=== PATIENT | female | born 1965 | race Hispanic/Latino ===

== ENCOUNTER 2023-01-16 10:34 | Emergency (ER) | payer BC ==
--- OUTSIDE RECORDS SUMMARY | 2023-01-16 10:38 | XMS REPORT | Continuity of Care Document ---
:1965 Author Organization [facility] t Address [address] [place] [address] [place] [id number] Care Team Providers Name Role Phone Laurel Valdez DO Primary Care Physician KRISTAL MARIO Attending Clinician Unavailable Payers Payer Name Policy Type Policy Number Effective Date Expiration Date S ource Blue Cross and C1 [id number] Common S [facility] Blue Cross and C1 [id number] Common S [facility] Problems Condition Condition Condition Status Onset Resolution Last Treating Co mments Source Name Details Category Date Date Treatment Clinician Date Dry eye Dry eye Disease Active Overview: Meth lucy 8-[address] 00:00: g of this [facility]osp[facility] 00 note l might be different from the original. filaments plugs replaced: 0.5 mm tear saver RLL, LLLrestas isnonpres erved artificia l teardefer steroid drops [id number] Acute left Problem Active C ommon 9105 ankle pain [facility] [id number] Sprain of Problem Active Comm on left Spirit ankle, - [facility] un[facility]if[facility] ligament, Medical initial Center encounter [id number] Primary Problem Active Comm on osteoarthr Spirit itis of - [facility] right hip [facility] Piriformis Piriformis Problem Active C ommon syndrome syndrome [facility] Allergies, Adverse Reactions, Alerts This patient has no known allergies or adverse reactions. Social History Social Habit Start Date Stop Date Quantity Comments Source History of Tobacco [facility] - Use [facility] Gender identity [facility] Sexual orientation Method [facility] Sex Assigned At [birth year] Met [facility] 00:00:00 00:00:00 Smoking Status Start Date Stop Date Source Tobacco smoking [facility] consumption unknown Former Smoker 2020-12-16 00:00:00 2020-12-16 [facility] Medications Ordered Filled Start Stop Current Ordering Indication Dosage Frequency Signature Comments Components Source Medication Medication Date Date Medication? Clinician (SIG) Name Name riri 2020-07 Yes 1[drp] Q.5D Administer Methodi (Xiidra) 5 0-[address] % 00:00: both eyes Hospita dropperette 00 2 (two) l times a day. rimegepant Yes 75mg Take 75 mg M ethodi (Nurtec 8-[address] ODT) 75 mg 14:25: Hospita tablet,disi 53 l ntegrating omeprazole Yes 40mg QD Take 40 mg M ethodi (PriLOSEC) 6-[address] 40 MG 00:00: daily. Hospita capsule 00 l Mobic Mobic 2020-0 2020- No Jose 1 tablet Com 03-17 Painting Spirit 00:00: 00:00 - [facility] 00 :00 [facility] PredniSONE PredniSONE Yes Jose not Common Painting defined [facility] Ciclopirox Ciclopirox Yes Jose not Common Painting defined [facility] Diphenoxyla Diphenoxyla Yes Jose not Common te-Atropine te-Atropine Painting defined [facility] Butalbital- Butalbital- Yes Jose not Common APAP-Caffei APAP-Caffei Paintnig defined [facility] ne [facility] Omeprazole Omeprazole Yes Jose not Common Painting defined [facility] Hyoscyamine Hyoscyamine Yes Jose not Common Sulfate Sulfate Painting defined [facility] Amoxicillin Amoxicillin Yes Jose not Common -Pot -Pot Painting defined [facility] Clavulanate Clavulanate [facility] Propranolol Propranolol No Propranolo HCl 10 MG HCl 10 MG l HCl 10 MG Topiramate Topiramate No Topiramate 50 MG 50 MG 50 MG Amoxicillin Amoxicillin No Amoxicilli -Pot -Pot n-Pot Clavulanate Clavulanate Clavulanat e Butalbital- Butalbital- No Butalbital APAP-Caffei APAP-Caffei -APAP-Caff ne ne eine Ciclopirox Ciclopirox No Ciclopirox Hyoscyamine Hyoscyamine No Hyoscyamin Sulfate Sulfate e Sulfate Diphenoxyla Diphenoxyla No Diphenoxyl te-Atropine te-Atropine ate-Atropi ne Omeprazole Omeprazole No Omeprazole Triazolam Triazolam No Triazolam 0.25 MG 0.25 MG 0.25 MG Ibuprofen Ibuprofen No Ibuprofen 600 MG 600 MG 600 MG Penicillin Penicillin No Penicillin V Potassium V Potassium V 500 MG 500 MG Potassium 500 MG PredniSONE PredniSONE No PredniSONE Meloxicam Meloxicam No Meloxicam 7.5 MG 7.5 MG 7.5 MG PredniSONE PredniSONE No PredniSONE Common [facility] Omeprazole Omeprazole No Omeprazole Common [facility] Butalbital- Butalbital- No Butalbital Common APAP-Caffei APAP-Caffei -APAP-Caff Spirit ne ne [facility] Topiramate Topiramate No Topiramate Common 50 MG 50 MG 50 MG [facility] Triazolam Triazolam No Triazolam Common 0.25 MG 0.25 MG 0.25 MG [facility] Amoxicillin Amoxicillin No Amoxicilli Common -Pot -Pot n-Pot Spirit Clavulanate Clavulanate Clavulanat - [facility] Ciclopirox Ciclopirox No Ciclopirox Common [facility] Meloxicam Meloxicam No Meloxicam Common 7.5 MG 7.5 MG 7.5 MG [facility] Hyoscyamine Hyoscyamine No Hyoscyamin Common Sulfate Sulfate e Sulfate Spir it - [facility] Propranolol Propranolol No Propranolo Common HCl 10 MG HCl 10 MG l HCl 10 S pirit MG [facility] Diphenoxyla Diphenoxyla No Diphenoxyl Common te-Atropine te-Atropine ate-Atropi [facility] ne [facility] Penicillin Penicillin No Penicillin Common V Potassium V Potassium V S pirit 500 MG 500 MG Potassium - [facility] 500 MG [facility] Ibuprofen Ibuprofen No Ibuprofen Common 600 MG 600 MG 600 MG [facility] Vital Signs Vital Name Observation Time Observation Value Comments Source height 2020-12-16 15:30:00 64 [in_i] [facility] weight 2020-12-16 15:30:00 14 [lb_av] Common S pirit [facility] bmi 2020-12-16 15:30:00 2.40 kg/m2 [facility] S pirit [facility] blood pressure 2020-12-16 15:30:00 155 mm[Hg] [facility] - systolic [facility] blood pressure 2020-12-16 15:30:00 91 mm[Hg] [facility] - diastolic [facility] height 2020-11-23 13:45:00 64 [in_i] Common S pirit [facility] weight 2020-11-23 13:45:00 184 [lb_av] Common S pirit [facility] bmi 2020-11-23 13:45:00 31.58 kg/m2 Common S pirit [facility] blood pressure 2020-11-23 13:45:00 126 mm[Hg] [facility] - systolic [facility] blood pressure 2020-11-23 13:45:00 84 mm[Hg] [facility] - diastolic [facility] Procedures This patient has no known procedures. Plan of Care Planned Activity Planned Date Details Comments Source Future Scheduled 2023-01-13 Screening for [facility] Test 11:32:10 malignant neoplasm of colon (procedure) [code = 938317522] Future Scheduled 2023-01-13 Screening for [facility] Test 11:32:10 malignant neoplasm of colon (procedure) [code = 038374156] Future Scheduled 2023-01-13 Screening for [facility] Test 11:32:10 malignant neoplasm of colon (procedure) [code = 724242561] Future Scheduled 2023-01-13 [facility] Test 11:32:10 screening (procedure) [code = 160605136] Future Scheduled 2023-01-13 Screening for [facility] Test 11:32:10 malignant neoplasm of cervix (procedure) [code = 567851276] Future Scheduled 2023-01-13 BREAST CANCER [facility] Test 11:32:10 SCREENING [code = BREAST CANCER SCREENING] Future Scheduled 2023-01-13 Screening for [facility] Test 11:32:10 malignant neoplasm of colon (procedure) [code = 688853189] Future Scheduled 2023-01-13 Screening for [facility] Test 11:32:10 malignant neoplasm of colon (procedure) [code = 700218594] Future Scheduled 2023-01-13 SHINGLES VACCINES [facility] Test 11:32:10 (1 of 2) [code = SHINGLES VACCINES (1 of 2)] Future Scheduled 2023-01-13 COVID-19 VACCINE (3 [facility] Test 11:32:10 - Moderna series) [code = COVID-19 VACCINE (3 - Moderna series)] Future Scheduled 2023-01-13 INFLUENZA VACCINE Method [facility] Hospital Test 11:32:10 [code = INFLUENZA VACCINE] Encounters Start End Encounter Admission Attending Care Care Encounter Source Date/Time Date/Time Type Type Clinicians Facility Department ID 2021-08-24 Outpatient [facility] Common 12:55:10 [id number] [facility] 2021-08-24 Outpatient [facility] Common 11:40:14 [id number] [facility] 2021-08-24 Outpatient [facility] [id number] Common 11:38:53 [id number] [facility] 2021-05-20 2021-05-20 Outpatient KRISTAL MARIO [facility] [id number] [place] 00:00:00 00:00:[address] 2021-03-24 2021-03-24 Outpatient KRISTAL MARIO [facility] [id number] [place] 00:00:00 00:00:[address] 2020-12-16 2020-12-16 OFF[facility] [id number] Co mmon 00:00:00 00:00:00 VISIT EST Spir it PT LEVEL 3 - [facility] 2020-11-23 2020-11-23 [facility] [id number] Co mmon 00:00:00 00:00:00 VISIT EST Spir it PT LEVEL 3 - [facility] 2020-04-13 2020-04-13 Outpatient Kaden Stockton [id number] Common 15:47:00 15:47:00 [facility] 2020-03-17 2020-03-17 Outpatient Kaden Stockton [id number] Common 08:30:00 08:30:00 t [facility] - [facility] Results This patient has no known results.
[2023-01-16] MEDS ORDERED: KETOROLAC 30 MG/ML INJ ONE (11:19)
[2023-01-16 11:33] LABS: Absolute Lymphocytes (CBC) 1.8 K/uL (0.7-4.9); Hematocrit 41.6 % (36.0-45.0); Lymphocytes % 32.2 % (15.3-44.8); MCV 88.6 fL (80-100)
[2023-01-16 11:51] LABS: Magnesium 2.1 mg/dL (1.6-2.4); Troponin High Sensitivity 4.1 pg/mL (<58.9)
--- NOTE | 2023-01-16 11:56 | RAD REPORT ---
EXAM DESCRIPTION: Rafat Single View01/16/2023 11:38 am CLINICAL HISTORY: neck and right anterior chest pain COMPARISON: No comparisons TECHNIQUE: Portable AP view of the chest. FINDINGS: The lungs are clear. No pneumothorax or effusion. The cardiomediastinal contours are unre markable. IMPRESSION: No acute cardiopulmonary process.
[2023-01-16] MEDS ORDERED: MECLIZINE HCL 12.5 MG TAB ONE (12:31)
--- NOTE | 2023-01-16 13:26 | RAD REPORT ---
EXAM DESCRIPTION: CT - Head Brain Wo Cont - 01/16/2023 1:13 pm CLINICAL HISTORY: Dizziness COMPARISON: none TECHNIQUE: Computed axial tomography of the head was obtained. IV contrast was not requested. All CT scans are performed using dose optimization technique as appropriate and may include automated exposure control or mA/KV adjustment according to patient size. FINDINGS: An intracranial bleed is not seen The ventricles are normal in caliber No significant hypodense areas within the brain visualized No extra-axial fluid collection is noted. Fluid within the sinuses/ mastoids is not seen IMPRESSION: No acute intracranial abnormality is seen If patient's symptoms persist MRI of the brain would be recommended
--- NOTE | 2023-01-16 14:17 | EDPHYS ---
Physician Documentation [facility] Name: Lucy Wang Age: 57 yrs Sex: Female : 1965 Arrival Date: 01/16/2023 Time: 10:34 Bed 14 Private MD: ED Physician Nico Oliveira HPI: 01/16 17:34 This 57 yrs old Female presents to ER via Ambulatory with complaints of kdr Dizziness, Vomiting. 17:34 Patient states that she has been vomiting since 7 AM. She woke at about 4:30 AM and had kdr pain on the right side of her neck which radiated into her right arm. She stated felt tingling in her right arm. Otherwise she is asymptomatic and not toxic. She has not had this before. Onset: The symptoms/episode began/occurred this morning. Severity of symptoms: At their worst the symptoms were moderate severe just prior to arrival, in the emergency department the symptoms have improved markedly. The patient has not experienced similar symptoms in the past. The patient has not recently seen a physician. Historical: - Allergies: 10:48 No Known Allergies; iw - Home Meds: 10:48 Butalbital Compound Oral as needed [Active]; iw - PMHx: 10:48 Migraine; reflux; iw - PSHx: 10:48 tubal ligation; iw - Social history:: Smoking status: . ROS: 17:34 Constitutional: Negative for fever, chills, and weight loss, Eyes: Negative for injury, kdr pain, redness, and discharge, Neck: Negative for injury, pain, and swelling, Cardiovascular: Negative for chest pain, palpitations, and edema, Respiratory: Negative for shortness of breath, cough, wheezing, and pleuritic chest pain, Abdomen/GI: Negative for abdominal pain, nausea, vomiting, diarrhea, and constipation, Back: Negative for injury and pain, : Negative for injury, bleeding, discharge, and swelling, MS/Extremity: Negative for injury and deformity, Skin: Negative for injury, rash, and discoloration, Psych: Negative for depression, anxiety, suicide ideation, homicidal ideation, and hallucinations, Allergy/Immunology: Negative for hives, rash, and allergies, Endocrine: Negative for neck swelling, polydipsia, polyuria, polyphagia, and marked weight changes, Hematologic/Lymphatic: Negative for swollen nodes, abnormal bleeding, and unusual bruising. 17:34 Neuro: Positive for dizziness, headache, weakness, All symptoms are very mild. Patient was unable to fully localize or describe her symptoms as she was generally vague. She did not any time appear toxic or acutely ill. Exam: 17:34 Constitutional: This is a well developed, well nourished patient who is awake, alert, kdr and in no acute distress. Head/Face: Normocephalic, atraumatic. Eyes: Pupils equal round and reactive to light, extra-ocular motions intact. Lids and lashes normal. Conjunctiva and sclera are non-icteric and not injected. Cornea within normal limits. Periorbital areas with no swelling, redness, or edema. Neck: Trachea midline, no thyromegaly or masses palpated, and no cervical lymphadenopathy. Supple, full range of motion without nuchal rigidity, or vertebral point tenderness. No Meningismus. Chest/axilla: Normal chest wall appearance and motion. Nontender with no deformity. No lesions are appreciated. Cardiovascular: Regular rate and rhythm with a normal S1 and S2. No gallops, murmurs, or rubs. Normal PMI, no JVD. No pulse deficits. Respiratory: Lungs have equal breath sounds bilaterally, clear to auscultation and percussion. No rales, rhonchi or wheezes noted. No increased work of breathing, no retractions or nasal flaring. Abdomen/GI: Soft, non-tender, with normal bowel sounds. No distension or tympany. No guarding or rebound. No evidence of tenderness throughout. Back: No spinal tenderness. No costovertebral tenderness. Full range of motion. Skin: Warm, dry with normal turgor. Normal color with no rashes, no lesions, and no evidence of cellulitis. MS/ Extremity: Pulses equal, no cyanosis. Neurovascular intact. Full, normal range of motion. Neuro: Awake and alert, GCS 15, oriented to person, place, time, and situation. Cranial nerves II-XII grossly intact. Motor strength 5/5 in all extremities. Sensory grossly intact. Cerebellar exam normal. Normal gait. Psych: Awake, alert, with orientation to person, place and time. Behavior, mood, and affect are within normal limits. Vital Signs: 10:46 BP 189 / 92; Pulse 77; Resp 18; Pulse Ox 100% on R/A; Weight 86.18 kg; Height 5 ft. 4 iw in. ; Pain 5/10; 11:19 BP 179 / 88; Pulse 75; Resp 19 S; Pulse Ox 99% on R/A; kc6 11:23 BP 164 / 110 RA Supine (auto/lg); Pulse 84; kc6 11:26 BP 163 / 94 RA Sitting (auto/lg); Pulse 79; kc6 11:29 BP 162 / 99 RA Standing (auto/lg); Pulse 89; kc6 12:28 BP 135 / 70; Pulse 69; Resp 19 S; Pulse Ox 95% on R/A; kc6 13:30 BP 156 / 88; Pulse 72; Resp 17 S; Pulse Ox 99% on R/A; kc6 10:46 Body Mass Index 32.61 (86.18 kg, 162.56 cm) iw 10:46 Pain Scale: Adult iw MDM: 14:17 Patient medically screened. kdr 17:34 Data reviewed: vital signs, nurses notes, lab test result(s), radiologic studies. ED kdr course: Patient was completely stable and not acutely ill-appearing during her stay in the ED.. 01/16 11:07 Order name: Basic Metabolic Panel; Complete Time: 12:36 kdr 01/16 11:07 Order name: CBC with Diff; Complete Time: 12:36 kdr 01/16 11:07 Order name: Magnesium; Complete Time: 12:36 kdr 01/16 11:07 Order name: Troponin HS; Complete Time: 12:36 kdr 01/16 11:07 Order name: XRAY Chest (1 view); Complete Time: 12:36 kdr 01/16 12:36 Order name: CT Head Brain wo Cont; Complete Time: 14:06 kdr 01/16 11:07 Order name: EKG; Complete Time: 11: kdr 01/16 11:07 Order name: Cardiac monitoring; Complete Time: 11: kdr 01/16 11:07 Order name: EKG - Nurse/Tech; Complete Time: 11: kdr 01/16 11:07 Order name: IV Saline Lock; Complete Time: : kdr 01/16 11:07 Order name: Labs collected and sent; Complete Time: : kdr 01/16 11:07 Order name: O2 Per Protocol; Complete Time: 11: kdr 01/16 11:07 Order name: O2 Sat Monitoring; Complete Time: 11:08 kdr 01/16 11:08 Order name: Orthostatic Blood Pressure; Complete Time: 11:29 kdr Administered Medications: 11:29 Drug: Ketorolac IVP 15 mg Route: IVP; Site: left antecubital; kc6 12:30 Follow up: Response: No adverse reaction; Pain is decreased kc6 12:26 Drug: Meclizine PO 25 mg Route: PO; kc6 15:00 Follow up: Response: No adverse reaction kc6 15:00 Drug: Acetaminophen PO 1000 mg Route: PO; kc6 Disposition Summary: 01/16/23 14:17 Discharge Ordered Location: Home kdr Problem: new kdr Symptoms: have improved kdr Condition: Stable kdr Diagnosis - Dizziness and giddiness kdr - Headache kdr - Nausea with vomiting, unspecified kdr Followup: kdr - With: Private Physician - When: 2 - 3 days - Reason: If symptoms return, Further diagnostic work-up, Recheck today's complaints, Continuance of care, Re-evaluation by your physician Discharge Instructions: - Discharge Summary Sheet kdr - General Headache Without Cause kdr - Vertigo, [id number] kdr - Hyperglycemia, [id number] kdr - Dizziness, [id number] kdr Forms: - Medication Reconciliation Form kdr - Thank You Letter kdr Prescriptions: - Meclizine 25 mg Oral Tablet - take 1 tablet by ORAL route every 8 hours As needed; 15 tablet; Refills: 0, kdr Product Selection Permitted Signatures: Dispatcher [employer] Nico Palm MD MD kdr Estefany Munoz RN RN iw Campbell, Kaitlyn, RN RN kc6
--- NOTE | 2023-01-16 14:17 | ER ---
Nurse's Notes [facility] Name: Lucy Wang Age: 57 yrs Sex: Female : 1965 Arrival Date: 01/16/2023 Time: 10:34 Bed 14 Private MD: Diagnosis: Dizziness and giddiness;Headache;Nausea with vomiting, unspecified Presentation: 01/16 10:46 Chief complaint: Patient states: has aleah vomiting and dizzy since this morning at 0700 iw , when she woke up at 0430 she had a bad pain in right side of neck , pain radiates to right arm and it feels tingly. Coronavirus screen: At this time, the client does not indicate any symptoms associated with coronavirus-19. Ebola Screen: Patient negative for fever greater than or equal to 101.5 degrees Fahrenheit, and additional compatible Ebola Virus Disease symptoms Patient denies exposure to infectious person. Patient denies travel to an Ebola-affected area in the 21 days before illness onset. No symptoms or risks identified at this time. Initial Sepsis Screen: Does the patient meet any 2 criteria? No. Patient's initial sepsis screen is negative. Does the patient have a suspected source of infection? No. Patient's initial sepsis screen is negative. Risk Assessment: Do you want to hurt yourself or someone else? Patient reports no desire to harm self or others. Onset of symptoms was January 16, 2023. 10:46 Method Of Arrival: Ambulatory iw 10:46 Acuity: EDIN 2 iw Historical: - Allergies: 10:48 No Known Allergies; iw - Home Meds: 10:48 Butalbital Compound Oral as needed [Active]; iw - PMHx: 10:48 Migraine; reflux; iw - PSHx: 10:48 tubal ligation; iw - Social history:: Smoking status: . Screenin:01 [facility] ED Fall Risk Assessment (Adult) History of falling in the last 3 months, kc6 including since admission No falls in past 3 months (0 pts) Confusion or Disorientation No (0 pts) Intoxicated or Sedated No (0 pts) Impaired Gait No (0 pts) Mobility Assist Device Used No (0 pt) Altered Elimination No (0 pt) Score/Fall Risk Level 0 - 2 = Low Risk Oriented to surroundings, Maintained a safe environment, Educated pt \T\ family on fall prevention, incl call for assistance when getting out of bed, Assessed \T\ reinforced patient's understanding of fall precautions, Hourly rounding (assess needs \T\ fall precautionary measures) done. Abuse screen: Denies threats or abuse. Denies injuries from another. Nutritional screening: No deficits noted. Tuberculosis screening: No symptoms or risk factors identified. Assessment: 11:00 General: Appears in no apparent distress. comfortable, Behavior is calm, cooperative, kc6 appropriate for age. Pain: Denies pain. Neuro: Cates Agitation-Sedation Scale (RASS): 0 - Alert and Calm Level of Consciousness is awake, alert, obeys commands, Oriented to person, place, time, situation, Appropriate for age Outboard Technician are equal bilaterally Moves all extremities. Gait is steady, Speech is normal, Facial symmetry appears normal, Pupils are PERRLA, Tingling in right arm Reports dizziness, since approximately 7am this morning. Cardiovascular: Capillary refill < 3 seconds. Respiratory: Airway is patent Trachea midline Respiratory effort is even, unlabored, Respiratory pattern is regular, symmetrical. GI: Abdomen is flat, non-distended, Bowel sounds present X 4 quads. Abd is soft and non tender X 4 quads. Reports nausea, vomiting, Patient currently denies diarrhea. : No signs and/or symptoms were reported regarding the genitourinary system. EENT: No signs and/or symptoms were reported regarding the EENT system. Derm: No signs and/or symptoms reported regarding the dermatologic system. Skin is intact, Skin is pink, warm \T\ dry. Musculoskeletal: No signs and/or symptoms reported regarding the musculoskeletal system. Circulation, motion, and sensation intact. Capillary refill < 3 seconds, Range of motion: intact in all extremities. 12:00 Reassessment: Patient appears in no apparent distress at this time. No changes from kc6 previously documented assessment. Patient and/or family updated on plan of care and expected duration. Pain level reassessed. Patient is alert, oriented x 3, equal unlabored respirations, skin warm/dry/pink. 13:00 Reassessment: Patient appears in no apparent distress at this time. No changes from kc6 previously documented assessment. Patient and/or family updated on plan of care and expected duration. Pain level reassessed. Patient is alert, oriented x 3, equal unlabored respirations, skin warm/dry/pink. 14:00 Reassessment: Patient appears in no apparent distress at this time. No changes from kc6 previously documented assessment. Patient and/or family updated on plan of care and expected duration. Pain level reassessed. Patient is alert, oriented x 3, equal unlabored respirations, skin warm/dry/pink. 15:00 Reassessment: Patient appears in no apparent distress at this time. No changes from kc6 previously documented assessment. Patient and/or family updated on plan of care and expected duration. Pain level reassessed. Patient is alert, oriented x 3, equal unlabored respirations, skin warm/dry/pink. Vital Signs: 10:46 BP 189 / 92; Pulse 77; Resp 18; Pulse Ox 100% on R/A; Weight 86.18 kg; Height 5 ft. 4 iw in. ; Pain 5/10; 11:19 BP 179 / 88; Pulse 75; Resp 19 S; Pulse Ox 99% on R/A; kc6 11:23 BP 164 / 110 RA Supine (auto/lg); Pulse 84; kc6 11:26 BP 163 / 94 RA Sitting (auto/lg); Pulse 79; kc6 11:29 BP 162 / 99 RA Standing (auto/lg); Pulse 89; kc6 12:28 BP 135 / 70; Pulse 69; Resp 19 S; Pulse Ox 95% on R/A; kc6 13:30 BP 156 / 88; Pulse 72; Resp 17 S; Pulse Ox 99% on R/A; kc6 10:46 Body Mass Index 32.61 (86.18 kg, 162.56 cm) iw 10:46 Pain Scale: Adult iw ED Course: 10:37 Patient arrived in ED. im 10:44 Nico Oliveira MD is Attending Physician. kdr 10:48 Triage completed. iw 10:49 Arm band placed on. iw 10:50 Marimar Zacarias, NEENA is Primary Nurse. kc6 11:02 Patient has correct armband on for positive identification. Placed in gown. Bed in low kc6 position. Call light in reach. Side rails up X 1. 11:23 Inserted saline lock: 20 gauge in left antecubital area, using aseptic technique. Blood kc6 collected. 11:40 XRAY Chest (1 view) In Process Unspecified. EDMS 13:14 CT Head Brain wo Cont In Process Unspecified. EDMS 15:01 No provider procedures requiring assistance completed. IV discontinued, intact, kc6 bleeding controlled, No redness/swelling at site. Pressure dressing applied. Administered Medications: 11:29 Drug: Ketorolac IVP 15 mg Route: IVP; Site: left antecubital; kc6 12:30 Follow up: Response: No adverse reaction; Pain is decreased kc6 12:26 Drug: Meclizine PO 25 mg Route: PO; kc6 15:00 Follow up: Response: No adverse reaction kc6 15:00 Drug: Acetaminophen PO 1000 mg Route: PO; kc6 Medication: 15:01 VIS not applicable for this client. kc6 Outcome: 14:17 Discharge ordered by . kdr 15:01 Discharged to home ambulatory. kc6 15:01 Condition: improved 15:01 Discharge instructions given to patient, Instructed on discharge instructions, follow up and referral plans. medication usage, Demonstrated understanding of instructions, follow-up care, medications, Prescriptions given X 1. 15:02 Patient left the ED. kc6 Signatures: Dispatcher [employer] [facility] Nico Oliveira MD MD kdr Estefany Munoz, RN NEENA iw Marimar Zacarias RN RN kc6 Brandie Alba
[2023-01-16] MEDS ORDERED: ACETAMINOPHEN 500 MG TAB ONE (14:32)
[2023-01-16 15:29] VITALS: BP 156/88; O2SAT 99
--- NOTE | 2023-01-17 19:12 | EKG ---
Test Date: 2023-01-16 Test Time: 10:58:03 Wire Border Assembler: CHRISTINA MEASUREMENT RESULTS: Intervals: Rate: 70 [place]: 146 QRSD: 90 QT: 398 QTc: 429 [place]: P: 43 [place]: 146 QRS: 81 T: 29 INTERPRETIVE STATEMENTS: Normal sinus rhythm Normal ECG No previous ECG available for comparison Electronically Signed On 01-17-23 19:10:17 CDT by Kael Howard
== END 2023-01-16 15:02 | disposition home or self-care (01) ==
LOC: ER 10:34
DX: R51.9 Headache, unspecified (principal); R11.2 Nausea with vomiting, unspecified
CPT/HCPCS: 93005; 85025; 80048; 36415; 83735; 84484; 70450; 71045; 96374; 99284; J8597